=== PATIENT | female | born 1955 | race Caucasian/White ===

== ENCOUNTER → 2018-08-30 | Day surgery (SDC) | payer OTHER ==
--- NOTE | 2018-08-31 16:11 | PATH ---
Surgical Pathology Report Patient Name: GORDY BETTS [facility]. Rec. #: [id number] /Age/Gender: 1955 (Age: 62) / F Account: [id number] Location: [facility] Taken: 08/30/2018 Received: 08/30/2018 Reported: 08/31/2018 Physicians: Niesha Cardoso Specimen(s) Received A: LEFT BREAST SPECIMEN - WITH CALCIFICATIONS B: LEFT BREAST SPECIMEN - WITHOUT CALCIFICATIONS Clinical History Nonpalpable lesion Mammographic findings: Microcalcification, suspicious Final Diagnosis A. 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 B. LEFT BREAST SPECIMEN WITHOUT CLASSIFICATIONS, STEREOTACTIC BIOPSY: BREAST TISSUE WITH FIBROADENOMA AND ASSOCIATED CLASSIFICATIONS. Electronically Signed John Stevenson M.D. Gross Description A. Received in formalin labeled "left breast with calcifications," is a 3.0 x 1.7 x 0.3 cm aggregate of multiple gamboa-yellow, irregular to cylindrical portions of fibroadipose tissue. The formalin is filtered and the specimen is entirely submitted in one cassette. B. Received in formalin labeled "left breast without calcifications," is a 2.0 x 2.0 x 0.3 cm aggregate of multiple gamboa-yellow, irregular to cylindrical portions of fibroadipose tissue. The formalin is filtered and the specimen is entirely submitted in one cassette. /08/30/2018 saudi08/30/2018
== END | disposition home or self-care (01) ==
LOC: FMAMMOTONE 11:27
PROVIDERS: ATTEND Physician Assistant
PROC: 0HBU3ZX Excision of Left Breast, Percutaneous Approach, Diagnostic (ICD-10-PCS; principal; 2018-08-30)
DX: D24.2 Benign neoplasm of left breast (principal); R92.1 Mammographic calcification found on diagnostic imaging of breast
CPT/HCPCS: 19081; 87899; 88305-TC; A4648

== ENCOUNTER 2018-09-16 14:27 | Emergency (ER) | payer OTHER ==
[2018-09-16 14:38] VITALS: BP 124/69; PULSE 91; TEMP 98.3; BMI 37.8
--- NOTE | 2018-09-16 14:52 | PDOC ---
History of Present Illness - General Chief Complaint: Injury Stated Complaint: FALL/ ANKLE PAIN Time Seen by Provider: 09/16/18 14:44 History Source: Patient Exam Limitations: No Limitations - History of Present Illness Initial Comments: 09/16/18 14:50 status post trip and fell down some stairs yesterday causing inversion and hyper -flexion injuries to both ankles and feet. Left side is worse than right side. Used ice and took some Tylenol but has continued pain and is limping. No other injury Occurred: reports: yesterday Severity: reports: moderate Pain Location: reports: lower extremity (bilateral ankles) Modifying Factors: improves with: cold therapy Loss of Consciousness: no loss of consciousness Associated Symptoms (Fall): denies symptoms Past History - Travel Traveled outside of the country in the last 30 days: No Close contact w/someone who was outside of country & ill: No - Past Medical History Allergies/Adverse Reactions: Allergies Allergy/AdvReac Type Severity Reaction Status Date / Time No Known Allergies Allergy Verified 09/16/18 14:38 Home Medications: Ambulatory Orders Doxepin HCl 50 mg PO HS #0 capsule 07/14/11 Sertraline HCl [Zoloft] 50 mg PO DAILY #0 tablet 07/14/11 Risperidone [Risperdal -] 0.5 mg PO HS 11/07/11 Albuterol Sulfate Inhaler - [Ventolin HFA Inhaler -] 2 inh PO Q4H #1 inh Albuterol 0.083% Nebulizer Roxy [Ventolin 0.083% Nebulizer Soln -] 1 neb NEB Q6H 10/10/13 Alprazolam [Xanax -] 1 mg PO BID 10/10/13 Budesonide/Formeterol Fumarate [SYMBICORT 160/4.5mcg -] 1 inh PO BID 10/10/13 Exenatide [Byetta] 5 mcg SQ DAILY 10/10/13 Guar Gum [Benefiber] 1 each PO BID #0 packet 10/10/13 Tiotropium [place] [Spiriva -] 1 inh PO DAILY 10/10/13 Leg Brace [Ankle Brace] 1 each MC ONCE #1 each 09/16/18 Asthma: Yes COPD: No Diabetes: Yes HTN: Yes Hypercholesterolemia: Yes Seizures: No Thyroid Disease: No - Surgical History Abdominal Surgery: Yes Gastric Stapling: Yes (2014) - Immunization History Td Vaccination: (UNKNOWN) Immunization Up to Date: No - Suicide/Smoking/Psychosocial Hx Smoking Status: No Smoking History: Never smoked Have you smoked in the past 12 months: No Number of Cigarettes Smoked Daily: 0 Hx Alcohol Use: No Drug/Substance Use Hx: No Substance Use Type: None Review of Systems - Review of Systems Able to Perform ROS?: Yes Is the patient limited Surinamese proficient: Yes Constitutional: Yes: Symptoms Reported, See HPI, Malaise. No: Fever HEENTM: No: Symptoms Reported Respiratory: No: Symptoms reported Musculoskeletal: Yes: Symptoms Reported, See HPI, Joint Pain, Joint Swelling, Muscle Pain Integumentary: Yes: Symptoms Reported, See HPI, Bruising All Other Systems: Reviewed and Negative *Physical Exam - Vital Signs Last Vital Signs Temp Pulse Resp BP Pulse Ox 98.3 F 91 H 18 124/69 99 09/16/18 14:36 09/16/18 14:36 09/16/18 14:36 09/16/18 14:36 09/16/18 14:36 - Physical Exam General Appearance: Yes: Nourished, Appropriately Dressed, Apparent Distress, Mild Distress, Moderate Distress HEENT: positive: SHELLEY, Normal ENT Inspection, TMs Normal, Pharynx Normal Respiratory/Chest: positive: Lungs Clear Gastrointestinal/Abdominal: positive: Soft Musculoskeletal: positive: Normal Inspection, Decreased Range of Motion (with swelling and point tenderness to dorsum/ navicular area . NO true point tenderness to lateral or medial malleolus. 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 Will F/U with Ortho *DC/Admit/Observation/Transfer Diagnosis at time of Disposition: Avulsion fracture of navicular bone of foot Qualifiers: Encounter type: initial encounter Fracture type: closed Laterality: left Qualified Code(s): S92.252A - Displaced fracture of navicular [scaphoid] of left foot, initial encounter for closed fracture - Discharge Dispostion Disposition: HOME Condition at time of disposition: Stable Decision to Admit order: No - Prescriptions Prescriptions: Leg Brace [Ankle Brace] 1 each ONCE #1 each - Referrals Referrals: Ernesto Carrillo MD [Primary Care Provider] - Ciaran Mcdonald DO [Staff Physician] - - Patient Instructions Printed Discharge Instructions: DI for Ankle Sprain Additional Instructions: Rest, ice to area on and off for 15 minutes 4-6 times a day Avoid heavy lifting or exercise until pain and swelling is resolved or until further directed Keep area highly elevated to reduce swelling Use splints/Yonatan wrap as directed Followup with orthopedist in one to 2 days if not improving, if significantly improved may wait one week for followup with orthopedist May use ibuprofen every 6 hours as needed for pain - Post Discharge Activity Forms/Work/School Notes: Back to Work
== END 2018-09-16 15:42 | disposition home or self-care (01) ==
LOC: JERFT 14:27
PROC: 2W3RX1Z Immobilization of Left Lower Leg using Splint (ICD-10-PCS; principal; 2018-09-16)
DX: S92.252A Displaced fracture of navicular [scaphoid] of left foot, initial encounter for closed fracture (principal); W10.8XXA Fall (on) (from) other stairs and steps, initial encounter; Y93.89 Activity, other specified; Y92.038 Other place in apartment as the place of occurrence of the external cause; Y99.8 Other external cause status; I10 Essential (primary) hypertension; E78.00 Pure hypercholesterolemia, unspecified; E11.9 Type 2 diabetes mellitus without complications; J45.909 Unspecified asthma, uncomplicated
CPT/HCPCS: 29515; 73610-TC-LT-FY; 73610-TC-RT-FY; 99282-25

== ENCOUNTER 2018-10-25 14:52 | Emergency (ER) | payer OTHER ==
[2018-10-25 15:11] VITALS: TEMP 97.4; BMI 38.1
--- NOTE | 2018-10-25 15:16 | PDOC ---
Rapid Medical Evaluation Time Seen by Provider: 10/25/18 15:05 Medical Evaluation: Allergies Allergy/AdvReac Type Severity Reaction Status Date / Time No Known Allergies Allergy Verified 10/25/18 15:05 10/25/18 15:06 I have performed a brief in-person evaluation of this patient. The patient presents with a chief complaint of: 63 yo F w/ PMHx HTN, HLD, DM ( not on meds) BIB daughter s/p fall. Pt got out of the car, felt weak in her knees and fell on the sidewalk, no LOC. She landed on her R side, hit R side of face, now c/o R sided neck/shoulder/knee/foot pain. NO HEATON, no dizziness. 2nd fall in 2 months (felt off balance both times). Not on AC Pertinent physical exam findings: Pt in mils distress from pain. R shoulder/hand /pinky/knee/foot/5th toe with tenderness on palpation, no assymetry seen. I have ordered the following: EKG, CBC, CMP, cardiac panel, xrays The patient will proceed to the ED for further evaluation. 10/25/18 15:16 Discharge Disposition - Diagnosis Fall Qualifiers: Encounter type: initial encounter Qualified Code(s): W19.XXXA - Unspecified fall, initial encounter - Referrals - Patient Instructions - Post Discharge Activity
--- NOTE | 2018-10-25 15:47 | PDOC ---
History of Present Illness - General Chief Complaint: Lightheaded Stated Complaint: RT SHOULDER/ RT HAND PAIN Time Seen by Provider: 10/25/18 15:05 History Source: Patient Exam Limitations: Other (poor historian) - History of Present Illness Initial Comments: Pt is a 63 yo F, with PMH of HTN, HLD, NIDDM, L knee arthritis, and gastric bypass (2014), who presents after a fall. The pt cannot say what precipitated her fall, but endorses recent light-headedness, frequent bruising, and 2 falls over the past month. The pt fell from standing onto her R side and hit her head , but denies LOC. Pt currently complains of pain on her R hand, R shoulder, R knee, and R foot. Pt denies any recent fevers/chills, headache, vision changes, syncope, chest pain, palpitations, SOB, nausea/vomiting, abdominal pain, urinary symptoms, diarrhea/constipation, or leg swelling. Allergies: NKDA PCP: Nohemi Social: Pt denies any cigarette, alcohol, or drug use. Pt denies any recent travel or sick contacts. Surgical: as above Family: no relevant history. 10/25/18 16:51 Past History - Travel Traveled outside of the country in the last 30 days: No Close contact w/someone who was outside of country & ill: No - Past Medical History Allergies/Adverse Reactions: Allergies Allergy/AdvReac Type Severity Reaction Status Date / Time No Known Allergies Allergy Verified 10/25/18 15:05 Home Medications: Ambulatory Orders Doxepin HCl 50 mg PO HS #0 capsule 07/14/11 Sertraline HCl [Zoloft] 50 mg PO DAILY #0 tablet 07/14/11 Risperidone [Risperdal -] 0.5 mg PO HS 11/07/11 Albuterol Sulfate Inhaler - [Ventolin HFA Inhaler -] 2 inh PO Q4H #1 inh Albuterol 0.083% Nebulizer Roxy [Ventolin 0.083% Nebulizer Soln -] 1 neb NEB Q6H 10/10/13 Alprazolam [Xanax -] 1 mg PO BID 10/10/13 Budesonide/Formeterol Fumarate [SYMBICORT 160/4.5mcg -] 1 inh PO BID 10/10/13 Exenatide [Byetta] 5 mcg SQ DAILY 10/10/13 Guar Gum [Benefiber] 1 each PO BID #0 packet 10/10/13 Tiotropium [place] [Spiriva -] 1 inh PO DAILY 10/10/13 Leg Brace [Ankle Brace] 1 each MC ONCE #1 each 09/16/18 Asthma: Yes COPD: No Diabetes: Yes HTN: Yes Hypercholesterolemia: Yes Seizures: No Thyroid Disease: No - Surgical History Abdominal Surgery: Yes Gastric Stapling: Yes (sleeve 2014) - Immunization History Td Vaccination: (UNKNOWN) Immunization Up to Date: No - Suicide/Smoking/Psychosocial Hx Smoking Status: No Smoking History: Never smoked Have you smoked in the past 12 months: No Number of Cigarettes Smoked Daily: 0 Hx Alcohol Use: No Drug/Substance Use Hx: No Substance Use Type: None Trauma Specific PMHX - Complaint Specific PMHX Arthritis: No Back Injury: No Neck Injury: No Hx Sacro Iliac Joint Dysfunction: No Review of Systems - Review of Systems Able to Perform ROS?: Yes Is the patient limited Chinese proficient: No Constitutional: Yes: Weight Stable. No: Chills, Diaphoresis, Fever, Loss of Appetite, Malaise, Weakness HEENTM: No: Blurred Vision, Double Vision, Nose Congestion, Throat Pain, Throat Swelling Respiratory: No: Cough, Orthopnea, Shortness of Breath Cardiac (ROS): Yes: Lightheadedness. No: Chest Pain, Edema, Irregular Heart Rate, Palpitations, Syncope, Chest Tightness ABD/GI: No: Constipated, Diarrhea, Nausea, Poor Appetite, Poor Fluid Intake, Vomiting, Abdominal cramping : No: Burning, Dysuria, Pain, Urgency Musculoskeletal: Yes: Joint Pain, Muscle Pain. No: Back Pain, Neck Pain Integumentary: Yes: Bruising. No: Rash Neurological: No: Headache, Numbness, Paresthesia, Weakness, Unsteady Gait, Dizziness Psychiatric: No: Sleep Pattern Change, Change in Appetite Endocrine: No: Increased Urine, Change in Weight Hematologic/Lymphatic: Yes: Easy Bruising. No: Anemia, Blood Clots, Easy Bleeding All Other Systems: Reviewed and Negative *Physical Exam - Vital Signs Last Vital Signs Temp Pulse Resp BP Pulse Ox 97.4 F L 110 H 18 119/77 98 10/25/18 15:06 10/25/18 15:06 10/25/18 15:06 10/25/18 15:06 10/25/18 15:06 - Physical Exam Comments: Pt tachycardic, pt afebrile. Pt appears anxious and uncomfortable, obese body habitus. Pt alert and oriented x3. 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 Cerebellar exam WNL. Pt ambulatory in ED with steady gait. No midline spinal tenderness, step-offs, or crepitus. Ecchymoses over extremities in multiple stages of healing. Tenderness over R shoulder and R mid-clavicle, dorsal R 5th digit of hand with ecchymosis over MCP and palm, dorsal R 5th digit of foot with mid-foot ecchymosis, and edema of R knee. R knee is stable, negative A-P drawer tests. No step-offs or skin tenting of R clavicle. Head normocephalic, atraumatic. Eyes PERRLA, EOMI. Oropharynx without erythema or exudates, no LAD b/l. No nasal congestion, hearing intact. Clear heart sounds, S1/S2, no JVD, b/l pedal edema, or heart murmur. Clear lung sounds, no respiratory distress, wheezes, crackles, or accessory muscle use. No abdominal or CVA tenderness to palpation, no rebound, no guarding. Abdomen soft, non-distended, and with normoactive bowel sounds. Skin without jaundice or rash other than ecchymoses noted above. 10/25/18 17:54 ED Treatment Course - LABORATORY CBC & Chemistry Diagram: 10/25/18 15:55 10/25/18 15:55 Medical Decision Making - Medical Decision Making Pt was seen at bedside, also will be seen by attending Dr. Pineda. Pt presenting with multiple falls over past 2 weeks, possibly mechanical (tripped over sidewalk), however, pt cannot recall how she fell. Pt will get work-up to eval for electrolyte imbalances, ACS, CVA. Pt likely to discharge to home if no fractures and pt can ambulate. Ordered work-up including CBC, CMP, cardiac profile, ECG, Mg, non-contrast head CT, x-rays of R shoulder/clavicle, R knee, R hand, and R foot. Provided 650 mg PO tylenol and lidocaine patch for improvement of pain. Will continue to reassess pt and monitor for symptomatic improvement. 10/25/18 18:01 X-rays read with Dr. Pineda showed no evidence of acute fractures. 10/25/18 18:24 CBC and CMP WNL. Trop negative ECG showed normal sinus rhythm, no ST segment changes or TWIs. Orthostatic vital signs showed drop in systolic with standing. Providing 1 L IV NS and then will discharge to home. Pt denying observation in hospital for observation and PT consult. Pt ambulatory in ED without difficulty and states pain much improved. Wrapped R hand with daniel wrap for pt comfort. 10/25/18 18:51 *DC/Admit/Observation/Transfer Diagnosis at time of Disposition: Fall Qualifiers: Encounter type: initial encounter Qualified Code(s): W19.XXXA - Unspecified fall, initial encounter - Discharge Dispostion Disposition: HOME Condition at time of disposition: Improved Decision to Admit order: No - Referrals Referrals: Moose Song [Primary Care Provider] - - Patient Instructions Printed Discharge Instructions: How to Prevent Falls, DI for Finger Sprain Additional Instructions: You were seen in the ER today after a fall. The results of your labs and imaging today were normal. Please follow-up with your primary care doctor within 1-2 days to discuss your visit and make sure your symptoms have improved. Please return to the ER if you have any worsening pain, development of fevers or chills, loss of consciousness, inability to tolerate food or fluids , or any other concerns. Please continue to drink plenty of fluids at home. You can take tylenol and motrin at home every 4-6 hours as needed for pain. - Post Discharge Activity
[2018-10-25] MEDS ORDERED: ACETAMINOPHEN 325 MG TABLET (FP) PO ONE (15:50)
[2018-10-25] MEDS ORDERED: LIDOCAINE 5% TOPICAL PATCH TP ONE (16:13)
[2018-10-25] MEDS ORDERED: LIDOCAINE 5% TOPICAL PATCH ONE (16:15)
[2018-10-25] MEDS ORDERED: ACETAMINOPHEN 325 MG TABLET (FP) ONE (16:15)
[2018-10-25 16:35] LABS: BASO % 0.9 % (0-2.0); EOS % 6.2 % (0-4.5); HEMOGLOBIN 12.1 GM/dL (10.7-15.3); LYMPH % 35.1 % (8-40); MCH 30.6 pg (25.7-33.7); MCHC 33.8 g/dl (32.0-36.0); MEAN CELL VOLUME 90.6 fl (80-96); MEAN PLT VOLUME 8.2 fl (7.5-11.1); MONO % 9.5 % (3.8-10.2); NEUT % 48.3 % (42.8-82.8); PLATELET COUNT 268 K/MM3 (134-434); RBC 3.97 M/mm3 (3.60-5.2); RDW 14.2 % (11.6-15.6); WHITE BLOOD COUNT 9.3 K/mm3 (4.0-10.0)
[2018-10-25 16:36] LABS: INR 0.94 (0.83-1.09); PROTHROMBIN TIME (PATIENT) 11.1 SEC (9.7-13.0)
[2018-10-25 16:49] LABS: ALBUMIN 3.6 g/dl (3.4-5.0); BILIRUBIN,TOTAL 0.3 mg/dL (0.2-1); BLOOD UREA NITROGEN 13.6 mg/dL (7-18); CALCIUM 9.3 mg/dL (8.5-10.1); CREATININE 0.8 mg/dL (0.55-1.3); POTASSIUM 4.1 mmol/L (3.5-5.1); TOT PROT 8.3 g/dl (6.4-8.2)
[2018-10-25 17:11] LABS: MAGNESIUM 2.1 mg/dL (1.8-2.4)
--- NOTE | 2018-10-25 18:25 | PDOC ---
Documentation entered by Krystyna Cash SCRIBE, acting as scribe for Ana Pineda DO. Ana Pineda DO: This documentation has been prepared by the Shailesh juan Xhesika, SCRIBE, under my direction and personally reviewed by me in its entirety. I confirm that the documentation accurately reflects all work, treatment, procedures, and medical decision making performed by me. Attending Attestation - Resident Resident Name: Lea Fatima - ED Attending Attestation I have performed the following: I have examined & evaluated the patient, The case was reviewed & discussed with the resident, I agree w/resident's findings & plan, Exceptions are as noted - HPI HPI: 10/25/18 17:41 The patient is a 63 year old female with a significant PMH of HTN, HLD, NIDDM, L knee arthritis, and gastric bypass (2014) who presents to the emergency department with R hand, R shoulder, R knee, and R foot pain s/p fall earlier today. The patient does not know why or how she falls, however, she notes she feels lightheaded. The patient notes she was walking, the ground had a crack, and she fell on her R side hitting her head on the ground. Pt denies LOC. Patient notes she has endorsed 2 falls in the past month. The patient denies chest pain, shortness of breath, headache and dizziness. Denies fever, chills, cough, nausea, vomiting, diarrhea and constipation. Denies dysuria, frequency, urgency and hematuria. Allergies: NKDA PCP: Dr. Song - Physicial Exam PE: 10/25/18 18:14 GENERAL: Awake, alert, and fully oriented, in no acute distress HEAD: No signs of trauma EYES: PERRLA, EOMI, sclera anicteric, conjunctiva clear ENT: Auricles normal inspection, hearing grossly normal, nares patent, oropharynx clear without exudates. Moist mucosa NECK: Normal ROM, supple, no lymphadenopathy, JVD, or masses LUNGS: Breath sounds equal, clear to auscultation bilaterally. No wheezes, and no crackles HEART: Regular rate and rhythm, normal S1 and S2, no murmurs, rubs or gallops ABDOMEN: Soft, nontender, normoactive bowel sounds. No guarding, no rebound. No masses EXTREMITIES: (+)bruising to b/l shoulders. (+) TTP of posterior shoulder and clavicle. (+) tenderness of 5th metacarpal at 5th and 6th MCP joint of R hand. ( +) abrasion and bruise to R thigh. (+) abrasion/bruise to lateral aspect of L foot. Sensation intact. Neurovascular intact. No edema. No clubbing or cyanosis. No cords, erythema. NEUROLOGICAL: Cranial nerves II through XII grossly intact. - Medical Decision Making 10/25/18 18:15 I, Dr. Ana Pineda, DO, attest that this document has been prepared under my direction and personally reviewed by me in its entirety. I further attest, that it accurately reflects all work, treatment, procedures and medical decision -making performed by me. 10/25/18 18:15 a/p: 63yo female s/p fall today-unsure how she fell, suspected mechanical trip and fall over uneven sidewalk -pt has been falling more often also with unknown bruises -pt with head injury, no roach -no neck pain, no c/t/l spine pain -pain to R hand and R foot -xrays, head ct, ekg, labs ordered -neuro intact 10/25/18 18:24 no acute fx on xrays head ct neg pt has been ambulatory in the ED trop neg labs reviewed and stable no dysuria pending orthostatic vs and ekg 10/25/18 18:32 mildly orthostatic on vss when standing will give 1L nss 10/25/18 18:59 pt stable for dc to home after nss bolus resident discussed drinking lots of fluids and pain control at home and follow up with pcp
[2018-10-25] MEDS ORDERED: SODIUM CHLORIDE 0.9% 1000 ML INFUS.BAG IV ONE (18:32)
[2018-10-25] MEDS ORDERED: SODIUM CHLORIDE 1,000 ML IV STA (18:36)
[2018-10-25 19:29] VITALS: BP 120/54; PULSE 76
[2018-10-25] MEDS ORDERED: LIDOCAINE PATCH REMOVAL MC SCH (22:00)
--- NOTE | 2018-10-26 14:16 | EKG ---
Test Reason : Blood Pressure : / mmHG Vent. Rate : 087 BPM Atrial Rate : 087 BPM P-R Int : 138 ms QRS Dur : 080 ms QT Int : 358 ms P-R-T Axes : 037 -15 030 degrees QTc Int : 430 ms NORMAL SINUS RHYTHM POOR R WAVE PROGRESSION WHEN COMPARED WITH ECG OF 07-NOV-2011 21:25, NO SIGNIFICANT CHANGE WAS FOUND Confirmed by MAK MOSER MD ([id number]) on 10/26/2018 2:16:07 PM Referred By: Confirmed By:MAK MOSER MD
== END 2018-10-25 19:37 | disposition home or self-care (01) ==
LOC: JER 14:52
DX: S09.8XXA Other specified injuries of head, initial encounter (principal); S40.012A Contusion of left shoulder, initial encounter; S40.011A Contusion of right shoulder, initial encounter; S70.11XA Contusion of right thigh, initial encounter; S60.221A Contusion of right hand, initial encounter; S90.31XA Contusion of right foot, initial encounter; W10.1XXA Fall (on)(from) sidewalk curb, initial encounter; Z91.81 History of falling; Y93.89 Activity, other specified; Y92.89 Other specified places as the place of occurrence of the external cause; Y99.8 Other external cause status; I10 Essential (primary) hypertension; E78.5 Hyperlipidemia, unspecified; E11.9 Type 2 diabetes mellitus without complications; M13.862 Other specified arthritis, left knee; Z98.84 Bariatric surgery status
CPT/HCPCS: 36415; 70450-TC; 73000-TC-RT-FY; 73030-TC-RT-FY; 73130-TC-RT-FY; 73562-TC-RT-FY; 73630-TC-RT-FY; 80053; 82550; 82553; 83735; 84100; 84484; 85025; 85610; 93005; 93010; 99283-25; J7030

== ENCOUNTER 2019-10-15 16:33 | Emergency (ER) | payer OTHER ==
[2019-10-15 16:41] VITALS: TEMP 98.8; BMI 39.6
--- NOTE | 2019-10-15 16:41 | PDOC ---
Rapid Medical Evaluation Chief Complaint: Edema Time Seen by Provider: 10/15/19 16:39 Medical Evaluation: Allergies Allergy/AdvReac Type Severity Reaction Status Date / Time No Known Allergies Allergy Verified 10/25/18 15:05 10/15/19 16:40 CC: leg swelling x 1 week, recent travel to [place], no other complaints, ExaM: noted 2 + edema top teresita feet and calves Plan: duplex Discharge Disposition - Diagnosis Edema - Referrals - Patient Instructions - Post Discharge Activity
--- NOTE | 2019-10-15 17:29 | PDOC ---
History of Present Illness - General Chief Complaint: Edema Stated Complaint: EDEMA Time Seen by Provider: 10/15/19 16:39 - History of Present Illness Initial Comments: 10/15/19 17:28 63yo F w/ swelling in both legs Past History - Medical History Allergies/Adverse Reactions: Allergies Allergy/AdvReac Type Severity Reaction Status Date / Time No Known Allergies Allergy Verified 10/15/19 16:41 Home Medications: Ambulatory Orders Doxepin HCl 50 mg PO HS #0 capsule 07/14/11 Sertraline HCl [Zoloft] 50 mg PO DAILY #0 tablet 07/14/11 Risperidone [Risperdal -] 0.5 mg PO HS 11/07/11 Albuterol Sulfate Inhaler - [Ventolin HFA Inhaler -] 2 inh PO Q4H #1 inh 06/05/13 Albuterol 0.083% Nebulizer Roxy [Ventolin 0.083% Nebulizer Soln -] 1 neb NEB Q6H 10/10/13 Alprazolam [Xanax -] 1 mg PO BID 10/10/13 Budesonide/Formeterol Fumarate [SYMBICORT 160/4.5mcg -] 1 inh PO BID 10/10/13 Exenatide [Byetta] 5 mcg SQ DAILY 10/10/13 Guar Gum [Benefiber] 1 each PO BID #0 packet 10/10/13 Tiotropium [place] [Spiriva -] 1 inh PO DAILY 10/10/13 Leg Brace [Ankle Brace] 1 each MC ONCE #1 each 09/16/18 Asthma: Yes COPD: No Diabetes: Yes HTN: Yes Hypercholesterolemia: Yes Seizures: No Thyroid Disease: No - Surgical History Abdominal Surgery: Yes Gastric Stapling: Yes (sleeve 2014) - Immunization History Td Vaccination: (UNKNOWN) Immunization Up to Date: No - Psycho-Social/Smoking History Smoking Status: No Smoking History: Never smoked Have you smoked in the past 12 months: No Number of Cigarettes Smoked Daily: 0 Information on smoking cessation initiated: No - Substance Abuse Hx (Audit-C & DAST Scrn) How often the patient has a drink containing alcohol: Never Score: In Men: 4 or > Positive; In Women: 3 or > Positive: 0 Screen Result (Pos requires Nsg. Audit-10AR): Negative In the last yr the pt used illegal drug/Rx for NonMed reason: No Score: Yes response is considered Positive: 0 Screen Result (Positive result requires Nsg. DAST-10): Negative *Physical Exam - Vital Signs Last Vital Signs Temp Pulse Resp BP Pulse Ox 98.8 F 96 H 19 112/67 95 10/15/19 16:39 10/15/19 16:39 10/15/19 16:39 10/15/19 16:39 10/15/19 16:39 Discharge - Discharge Information Clinical Impression/Diagnosis: Edema - Follow up/Referral Referrals: Moose Song [Primary Care Provider] - - Patient Discharge Instructions - Post Discharge Activity
--- NOTE | 2019-10-15 18:42 | PDOC ---
History of Present Illness - General Chief Complaint: Edema Stated Complaint: EDEMA Time Seen by Provider: 10/15/19 16:39 History Source: Patient Exam Limitations: Language Barrier - History of Present Illness Initial Comments: Joanna is a 63 yo morbidly obese F w a hx of HTN, HLD, NIDDM, L knee arthritis, and gastric bypass (2014) who presents to the [facility] er with 4 days of worsening bilateral leg swelling. She recently vacationed to [facility] and returned on a long flight today. The swelling of both legs acutely worsened today so the patients daughter urged her to come into the ER to be evaluated. Patient also endorses mild fatigue. Denies chest pain, SOB, difficulty breathing, nausea, vomiting, abdominal pain, worsening of her fatigue with physical activity. Denies taking calcium channel blockers for HTN. Denies fevers, chills, or rashes. PCP: Nohemi PSH: Gastric bypass Allergies: NKDA Social Hx: Denies smoking, drinking, or other substance abuse Past History - Medical History Allergies/Adverse Reactions: Allergies Allergy/AdvReac Type Severity Reaction Status Date / Time No Known Allergies Allergy Verified 10/15/19 16:41 Home Medications: Ambulatory Orders Doxepin HCl 50 mg PO HS #0 capsule 07/14/11 Sertraline HCl [Zoloft] 50 mg PO DAILY #0 tablet 07/14/11 Risperidone [Risperdal -] 0.5 mg PO HS 11/07/11 Albuterol Sulfate Inhaler - [Ventolin HFA Inhaler -] 2 inh PO Q4H #1 inh 06/05/13 Albuterol 0.083% Nebulizer Roxy [Ventolin 0.083% Nebulizer Soln -] 1 neb NEB Q6H 10/10/13 Alprazolam [Xanax -] 1 mg PO BID 10/10/13 Budesonide/Formeterol Fumarate [SYMBICORT 160/4.5mcg -] 1 inh PO BID 10/10/13 Exenatide [Byetta] 5 mcg SQ DAILY 10/10/13 Guar Gum [Benefiber] 1 each PO BID #0 packet 10/10/13 Tiotropium [place] [Spiriva -] 1 inh PO DAILY 10/10/13 Leg Brace [Ankle Brace] 1 each ONCE #1 each 09/16/18 Asthma: Yes COPD: No Diabetes: Yes HTN: Yes Hypercholesterolemia: Yes Seizures: No Thyroid Disease: No - Surgical History Abdominal Surgery: Yes Gastric Stapling: Yes (sleeve 2014) - Immunization History Td Vaccination: (UNKNOWN) Immunization Up to Date: No - Psycho-Social/Smoking History Smoking Status: No Smoking History: Never smoked Have you smoked in the past 12 months: No Number of Cigarettes Smoked Daily: 0 Information on smoking cessation initiated: No - Substance Abuse Hx (Audit-C & DAST Scrn) How often the patient has a drink containing alcohol: Never Score: In Men: 4 or > Positive; In Women: 3 or > Positive: 0 Screen Result (Pos requires Nsg. Audit-10AR): Negative In the last yr the pt used illegal drug/Rx for NonMed reason: No Score: Yes response is considered Positive: 0 Screen Result (Positive result requires Nsg. DAST-10): Negative Review of Systems - Review of Systems Able to Perform ROS?: Yes Comments:: CONSTITUTIONAL: Present: Fatigue Absent: fever, no chills EYES: Absent: visual changes ENT: Absent: ear pain, no sore throat CARDIOVASCULAR: Present: Leg swelling Absent: chest pain, no palpitations RESPIRATORY: Absent: cough, no SOB GI: Absent: abdominal pain, no nausea, no vomiting, no constipation, no diarrhea GENITOURINARY: Absent: dysuria, no frequency, no hematuria MUSKULOSKELETAL: Absent: back pain, no arthralgia, no myalgia SKIN: Absent: rash NEURO: Absent: headache *Physical Exam - Vital Signs Last Vital Signs Temp Pulse Resp BP Pulse Ox 98.8 F 96 H 19 112/67 95 10/15/19 16:39 10/15/19 16:39 10/15/19 16:39 10/15/19 16:39 10/15/19 16:39 - Physical Exam GENERAL: Morbidly obese. Well-appearing, well-nourished. No apparent distress. HEENT: Normocephalic, atraumatic. PERRL, EOM intact. CARDIOVASCULAR: Normal S1, S2. Regular rate and rhythm. PULMONARY: No evidence of respiratory distress. Lungs clear to auscultation bilaterally. No wheezing, rales or rhonchi. ABDOMEN: Soft, non-distended, non-tender. EXTREMITIES: There is 1+ edema in both lower legs. Normal ROM in all four extremities. No gross deformities. SKIN: Warm, dry. No rash NEUROLOGICAL: No focal neurological deficits. ED Treatment Course - LABORATORY CBC & Chemistry Diagram: 10/15/19 18:37 10/15/19 18:37 - RADIOLOGY Radiology Studies Ordered: Category Date Time Status CHEST PA & LAT [RAD] Stat Radiology 10/15/19 18:29 Ordered Medical Decision Making - Medical Decision Making Joanna is a 63 yo morbidly obese F w a hx of HTN, HLD, NIDDM, L knee arthritis, and gastric bypass (2014) who presents to the [facility] er with 4 days of worsening bilateral leg swelling. She recently vacationed to [facility] and returned on a long flight today. The swelling of both legs acutely worsened today so the patients daughter urged her to come into the ER to be evaluated. Patient also endorses mild fatigue. Denies chest pain, SOB, difficulty breathing, nausea, vomiting, abdominal pain, worsening of her fatigue with physical activity. Denies taking calcium channel blockers for HTN. Denies fevers, chills, or rashes. Vital Signs Temp Pulse Resp BP Pulse Ox 98.8 F 96 H 19 112/67 95 10/15/19 16:39 10/15/19 16:39 10/15/19 16:39 10/15/19 16:39 10/15/19 16:39 DDx IBNLT: DVT, heart failure, arrythmia, Atypical ACS, benign lower extremity edema Plan: Labs, EKG, CXR, Duplex, re-assess Duplex: No evidence of DVT in either lower extremity MDM: Patient appears very well and if labs are unremarkable and do not show heart failure or other problems patient can likely be DC'ed with close PCP and cards FU. Dispo: Signing patient out to Dr. Lemus to follow up on the labs, EKG, CXR, further care and final ED disposition Discharge - Discharge Information Problems reviewed: Yes Clinical Impression/Diagnosis: Swelling of lower leg, Localized swelling of both lower legs Edema Qualifiers: Edema type: localized Qualified Code(s): R60.0 - Localized edema Condition: Stable - Follow up/Referral Referrals: Moose Song [Primary Care Provider] - - Patient Discharge Instructions - Post Discharge Activity
[2019-10-15 19:05] LABS: BASO % 1.1 % (0-2.0); EOS % 1.7 % (0-4.5); HEMATOCRIT 34.8 % (32.4-45.2); HEMOGLOBIN 11.5 GM/dL (10.7-15.3); LYMPH % 28.9 % (8-40); MCH 30.5 pg (25.7-33.7); MCHC 33.1 g/dl (32.0-36.0); MEAN CELL VOLUME 92.1 fl (80-96); MEAN PLT VOLUME 8.1 fl (7.5-11.1); MONO % 7.8 % (3.8-10.2); NEUT % 60.5 % (42.8-82.8); PLATELET COUNT 236 K/MM3 (134-434); RBC 3.78 M/mm3 (3.60-5.2); RDW 14.6 % (11.6-15.6); WHITE BLOOD COUNT 8.2 K/mm3 (4.0-10.0)
--- NOTE | 2019-10-15 19:10 | PDOC ---
*Physical Exam - Vital Signs Last Vital Signs Temp Pulse Resp BP Pulse Ox 98.8 F 96 H 19 112/67 95 10/15/19 16:39 10/15/19 16:39 10/15/19 16:39 10/15/19 16:39 10/15/19 16:39 ED Treatment Course - LABORATORY CBC & Chemistry Diagram: 10/15/19 18:37 10/15/19 18:37 - ADDITIONAL ORDERS Additional order review: 10/15/19 18:37 RBC 3.78 MCV 92.1 MCHC 33.1 RDW 14.6 MPV 8.1 Neutrophils % 60.5 D Lymphocytes % 28.9 Monocytes % 7.8 Eosinophils % 1.7 Basophils % 1.1 Medical Decision Making - Medical Decision Making 10/15/19 19:19 Received sign out from day team. 63yo morbidly obese F hx of HTN, HLD, NIDDM, L knee arthritis, and gastric bypass (2014) who presents to the ED with 4 days of worsening bilateral leg swelling s/p recent vacation to [place] with return flight today. The swelling of both legs acutely worsened today. Endorses mild fatigue; denies chest pain, SOB, difficulty breathing, nausea, vomiting, abdominal pain, worsening of her fatigue with physical activity, CCB, F/C, rash. Exam notable for 1+ edema BLE. Duplex: No evidence of DVT in either lower extremity []labs, EKG, CXR, likely discharge 10/15/19 19:54 Labs reviewed - no concerning findings CXR reviewed - no acute pathology EKG reviewed: normal sinus rhythm, 69bpm, normal axis, normal intervals, no TWIs, no ST elevations or depressions Pt only c/o leg swelling, unchanged since arrival, no other sx. Most likely due to venous stasis/prolonged standing/plane flight. No e/o CHF or DVT or other emergent pathology. Safe for d/c. Will discharge home with PCP f/u. Return precautions given. Pt understands all d ischarge instructions and all questions were answered. Discharge - Discharge Information Problems reviewed: Yes Clinical Impression/Diagnosis: Swelling of lower leg, Localized swelling of both lower legs Edema Qualifiers: Edema type: localized Qualified Code(s): R60.0 - Localized edema Condition: Stable Disposition: HOME - Admission No - Follow up/Referral Referrals: Moose Song [Primary Care Provider] - - Patient Discharge Instructions Patient Printed Discharge Instructions: DI for Edema Due to Venous Stasis, DI for Peripheral Edema -- Bilateral Additional Instructions: You have been seen for your leg swelling. Your EKG, chest X-ray, ultrasound, and labs, including Troponin (a heart enzyme), show no signs concerning for an emergent condition such as a heart attack or pneumonia or blood clot. Your swelling is most likely due to prolonged standing or sitting. Follow-up with your primary care doctor within 1 week. You may benefit from compression stockings. Return to the Emergency Department immediately if you experience chest pain, difficulty breathing, passing out, or any other new or worsening symptom. Print Language: PALAUAN - Post Discharge Activity
[2019-10-15 19:15] LABS: INR 0.97 (0.83-1.09); PROTHROMBIN TIME (PATIENT) 11.5 SEC (9.7-13.0)
[2019-10-15 19:18] LABS: ACTIVATED PTT 27.8 SECONDS (25.2-36.5)
[2019-10-15 19:37] LABS: ALBUMIN 3.4 g/dl (3.4-5.0); ALK PHOS 96 U/L (45-117); ANION GAP 9 MMOL/L (8-16); BILIRUBIN,TOTAL 0.4 mg/dL (0.2-1); BLOOD UREA NITROGEN 15.6 mg/dL (7-18); CALCIUM 9.1 mg/dL (8.5-10.1); CHLORIDE 109 mmol/L (98-107); CO2 25 mmol/L (21-32); CREATININE 0.8 mg/dL (0.55-1.3); GLUCOSE,RANDOM 84 mg/dL (74-106); MAGNESIUM 2.1 mg/dL (1.8-2.4); N-TERMINAL BNP 124.3 pg/ml (5-125); POTASSIUM 3.9 mmol/L (3.5-5.1); SGOT/AST 26 U/L (15-37); SGPT/ALT 12 U/L (13-61); SODIUM 142 mmol/L (136-145); TOT PROT 7.6 g/dl (6.4-8.2)
--- NOTE | 2019-10-15 19:56 | PDOC ---
Documentation entered by Krystyna Cash SCRIBE, acting as scribe for Deisy Finnegan MD. Deisy Finnegan MD: This documentation has been prepared by the Andrew juan Xhesika, SCRIBE, under my direction and personally reviewed by me in its entirety. I confirm that the documentation accurately reflects all work, treatment, procedures, and medical decision making performed by me. Attending Attestation - Resident Resident Name: Jeremy Darling - ED Attending Attestation I have performed the following: I have examined & evaluated the patient, The case was reviewed & discussed with the resident, I agree w/resident's findings & plan, Exceptions are as noted - HPI HPI: 10/15/19 17:26 The patient is a 63y/o F with a PMH of morbid obesity, HTN, HLD, NIDDM, L knee arthritis, and gastric bypass (2014) who presents to the ED with bilateral leg swelling x 4days. Pt reports she recently traveled to [place]. Pt reports associated fatigue. The patient denies chest pain, shortness of breath, headache and dizziness. Denies fever, chills, cough, nausea, vomiting, diarrhea and constipation. Allergies: NKDA PCP: Dr. Song - Physicial Exam PE: 10/15/19 18:51 GENERAL: Awake, alert, and fully oriented, in no acute distress. +morbidly obese HEAD: No signs of trauma NECK: Normal ROM, supple, no lymphadenopathy, JVD, or masses LUNGS: Breath sounds equal, clear to auscultation bilaterally. No wheezes, and no crackles HEART: Regular rate and rhythm, normal S1 and S2, no murmurs, rubs or gallops ABDOMEN: Soft, nontender, normoactive bowel sounds. No guarding, no rebound. No masses EXTREMITIES: +bilateral pitting edema. Normal range of motion. No clubbing or cyanosis. NEUROLOGICAL: Cranial nerves II through XII grossly intact. SKIN: Warm, Dry, normal turgor, no rashes lesions noted. - Medical Decision Making 10/15/19 19:54 no DVT found negative troponin cbc,comp is unremarkable ekg is NSR @ 69 bpm imp: LE edema/ d/c home Discharge - Discharge Information Problems reviewed: Yes Clinical Impression/Diagnosis: Edema, Swelling of lower leg, Localized swelling of both lower legs Condition: Stable Disposition: HOME - Follow up/Referral Referrals: Moose Song [Primary Care Provider] - - Patient Discharge Instructions Patient Printed Discharge Instructions: DI for Edema Due to Venous Stasis, DI for Peripheral Edema -- Bilateral Additional Instructions: You have been seen for your leg swelling. Your EKG, chest X-ray, ultrasound, and labs, including Troponin (a heart enzyme), show no signs concerning for an emergent condition such as a heart attack or pneumonia or blood clot. Your swelling is most likely due to prolonged standing or sitting. Follow-up with your primary care doctor within 1 week. You may benefit from compression stockings. Return to the Emergency Department immediately if you experience chest pain, difficulty breathing, passing out, or any other new or worsening symptom. Print Language: AZERI - Post Discharge Activity
[2019-10-15 20:08] VITALS: BP 114/66; PULSE 88
--- NOTE | 2019-10-16 12:55 | EKG ---
Test Reason : Blood Pressure : / mmHG Vent. Rate : 069 BPM Atrial Rate : 069 BPM P-R Int : 152 ms QRS Dur : 082 ms QT Int : 420 ms P-R-T Axes : 013 -11 017 degrees QTc Int : 450 ms NORMAL SINUS RHYTHM NORMAL ECG WHEN COMPARED WITH ECG OF 25-OCT-2018 18:10, NO SIGNIFICANT CHANGE WAS FOUND Confirmed by MD YVETET, WINNIE ([id number]) on 10/16/2019 12:55:03 PM Referred By: Confirmed By:WINNIE CRAWFORD MD
== END 2019-10-15 20:08 | disposition home or self-care (01) ==
LOC: JER 16:33
DX: R60.0 Localized edema (principal)
CPT/HCPCS: 36415; 71046-TC-FY; 80053; 82550; 82553; 83735; 83880; 84484; 85025; 85610; 85730; 93005; 93010; 93970-TC; 99285-25

== ENCOUNTER 2023-03-16 13:30 | Emergency (ER) | payer OTHER ==
[2023-03-16 13:42] VITALS: TEMP 98.4; BMI 32.0
[2023-03-16] MEDS ORDERED: IBUPROFEN 400 MG TABLET (FP) PO ONE ×2 (15:09→15:31)
[2023-03-16] MEDS ORDERED: LIDOCAINE 5% TOPICAL PATCH TP ONE (15:09)
[2023-03-16] MEDS ORDERED: LIDOCAINE 4% PATCH TP ONE (15:32)
[2023-03-16 16:04] LABS: BASO % 1.2 % (0-2.0); EOS % 7.9 % (0-4.5); HEMATOCRIT 36.1 % (32.4-45.2); HEMOGLOBIN 12.1 GM/dL (10.7-15.3); LYMPH % 45.8 % (8-40); MCH 30.9 pg (25.7-33.7); MCHC 33.6 g/dl (32.0-36.0); MEAN CELL VOLUME 92.1 fl (80-96); MEAN PLT VOLUME 7.1 fl (7.5-11.1); MONO % 9.4 % (3.8-10.2); NEUT % 35.7 % (42.8-82.8); PLATELET COUNT 233 10^3/uL (134-434); RBC 3.92 M/mm3 (3.60-5.2); WHITE BLOOD COUNT 6.6 K/mm3 (4.0-10.0)
[2023-03-16 16:17] LABS: POTASSIUM 3.9 mmol/L (3.5-5.1)
[2023-03-16 16:18] LABS: CALCIUM 9.2 mg/dL (8.5-10.1)
[2023-03-16 16:19] LABS: BLOOD UREA NITROGEN 12.3 mg/dL (7-18)
[2023-03-16 16:41] LABS: CREATININE 0.8 mg/dL (0.55-1.3)
[2023-03-16 16:53] VITALS: BP 127/54; PULSE 75; RESP 16
[2023-03-16] MEDS ORDERED: LIDOCAINE PATCH REMOVAL MC SCH (22:00)
== END 2023-03-16 17:25 | disposition home or self-care (01) ==
LOC: JERFT 13:30 → JER 13:30
DX: R20.0 Anesthesia of skin (principal); M25.512 Pain in left shoulder
CPT/HCPCS: 36415; 73030-TC-LT-FY; 80048; 84484; 85025; 93005; 93010; 99285-25